=== PATIENT | male | born 1965 | race Caucasian/White ===

== ENCOUNTER 2024-06-29 09:04 | Emergency (ER) | payer BC, SELFPAY ==
[2024-06-29] VITALS (14 sets, daily range): BP systolic 158–190; BP diastolic 99–125; BMI 27.2
--- NOTE | 2024-06-29 09:19 | ED.GENMED ---
History of Present Illness
<Elizabet López PA-C - Last Filed: 06/29/24 15:10>
General
Chief Complaint: Numbness
Source: patient
Exam Limitations: none
Time Seen by Provider: 06/29/24 09:19
Nursing documentation reviewed up to this point in time: agreed with
History of Present Illness
History of Present Illness:
This is a 59 y/o male with a PMH of HTN, HLP presenting to the emergency department today with left arm paresthesias that started around 3 hours ago upon wakening. Patient reports that he feels these paresthesias from the tips of all his fingers up
to 1/3 up the distal forearm. Patient states that it feels like he slept on it wrong but normally the sensation will go away within minutes upon wakening and this time it has persisted. Patient reports that since it has started, it has not gotten
worse and has since started to improve a bit. Patient also notes associated fatigue. Patient denies dizziness, lightheadedness, chest pain, shortness of breath, difficulty speaking, weakness, difficulty ambulating. Patient does have a history of
hypertension hyperlipidemia and he is controlled on nebivolol, statin, and baby aspirin. Patient reports no specific cardiac history, however he had a recent abnormal coronary artery calcium score and is scheduled to have an echocardiogram.
Patient denies any wrist pain, any neck pain.
Review of Systems
<Elizabet López PA-C - Last Filed: 06/29/24 15:10>
Review of Systems
All Other Systems: ROS reviewed and negative except as documented in HPI and ROS
Phy Exam
<Elizabet López PA-C - Last Filed: 06/29/24 15:10>
Physical Exam
Physical Exam:
General: Patient is well appearing and in no acute distress; non-toxic
Skin: Warm and dry, no rashes or lesions
Head: Normocephalic, atraumatic
Eyes: Sclera non-icteric. EOMs intact. Visual field testing intact.
Neck: Patient seen continuously moving cervical spine, no tenderness palpation cervical spine
Cardiac: Regular rate and rhythm, no murmur
Peripheral Vascular: No lower extremity swelling or edema
Pulm: Normal respiratory effort, equal breath sounds bilaterally, no wheezes, rales, or rhonchi
Musculoskeletal: 5 out of 5 strength in bilateral upper and lower extremities, no palpable bony deformities. Negative Phalen's test, negative Tinel's, negative elbow flexion test.
Neuro: CN II-XII intact, no focal neurologic deficits. Sensation intact to light touch bilaterally. Normal rkaath-uv-[id number], [id number] testing.
Psychiatric: Appropriate mood and affect.
Scores
<Elizabet López PA-C - Last Filed: 06/29/24 15:10>
NIH Stroke Score
Level of Consciousness: 0 - Alert
LOC Questions: 0-Answers both correctly
LOC Commands: 0-Performs both correctly
Best Horizontal Gaze: 0-Normal
Visual Phillips: 0=Normal, no visual loss
Facial Palsy: 0=Normal, symmetrical
Motor - Right Arm: 0=No drift 10 seconds
Motor - Left Arm: 0=No drift 10 seconds
Motor - Right Le-No drift 5 seconds
Motor - Left Le-No drift 5 seconds
Limb Ataxia: 0-Absent
Sensation: 0-Normal
Best Language: 0-No aphasia
Dysarthria: 0-Normal
Extinction and Inattention: 0-No abnormality
Total Score:: 0
<Polly London DO - Last Filed: 06/29/24 12:42>
NIH Stroke Score
Total Score:: 0
Course
<Elizabet López PA-C - Last Filed: 06/29/24 15:10>
Orders/Labs/Results
Orders:
Orders
06/29/24 09:12
ECG [Electrocardiogram (*1)] Urgent
Reason for Study: Vertigo / Dizzy
EKG- Treatment ONCE
06/29/24 09:22
IV Insert/Care/Rem.- Treatment PRN
06/29/24 09:39
Complete Blood Count/With Diff Urgent
Comprehensive Metabolic Panel Urgent
Troponin I Urgent
06/29/24 10:13
CT Head W/o Iv Contrast Urgent
Comment:
Reason For Exam: left upper extremity paresthesias
Abnormal Lab Results
06/29/24
09:39
RBC 4.51 L 10^6/uL
(4.70-6.10)
MCV 96.0 H fL
(80.0-94.0)
MCH 33.9 H pg
(27.0-31.0)
Absolute Monos (auto) 0.7 H 10^3/uL
(0.1-0.6)
Monocytes % 12.5 H %
(1.7-9.3)
Carbon Dioxide 20 L mmol/L
(22-30)
AST 70 H U/L
(17-59)
ALT 77 H U/L
(0-50)
06/29/24 09:39
06/29/24 09:39
Vital Signs
Initial and Last Documented VS:
Initial Vital Signs
Temp Pulse Resp BP Pulse Ox
97.9 F 63 18 190/117 98
06/29/24 09:07 06/29/24 09:07 06/29/24 09:07 06/29/24 09:07 06/29/24 09:07
Last Documented Vital Signs
Temp Pulse Resp BP Pulse Ox
97.9 F 64 12 165/99 96
06/29/24 09:07 06/29/24 12:40 06/29/24 12:40 06/29/24 12:40 06/29/24 12:30
<Polly London, DO - Last Filed: 06/29/24 12:42>
Orders/Labs/Results
Orders:
Orders
06/29/24 09:12
ECG [Electrocardiogram (*1)] Urgent
Reason for Study: Vertigo / Dizzy
EKG- Treatment ONCE
06/29/24 09:22
IV Insert/Care/Rem.- Treatment PRN
06/29/24 09:39
Complete Blood Count/With Diff Urgent
Comprehensive Metabolic Panel Urgent
Troponin I Urgent
06/29/24 10:13
CT Head W/o Iv Contrast Urgent
Comment:
Reason For Exam: left upper extremity paresthesias
Abnormal Lab Results
06/29/24
09:39
RBC 4.51 L 10^6/uL
(4.70-6.10)
MCV 96.0 H fL
(80.0-94.0)
MCH 33.9 H pg
(27.0-31.0)
Absolute Monos (auto) 0.7 H 10^3/uL
(0.1-0.6)
Monocytes % 12.5 H %
(1.7-9.3)
Carbon Dioxide 20 L mmol/L
(22-30)
AST 70 H U/L
(17-59)
ALT 77 H U/L
(0-50)
06/29/24 09:39
06/29/24 09:39
Vital Signs
Initial and Last Documented VS:
Initial Vital Signs
Temp Pulse Resp BP Pulse Ox
97.9 F 63 18 190/117 98
06/29/24 09:07 06/29/24 09:07 06/29/24 09:07 06/29/24 09:07 06/29/24 09:07
Last Documented Vital Signs
Temp Pulse Resp BP Pulse Ox
97.9 F 64 12 165/99 96
06/29/24 09:07 06/29/24 12:40 06/29/24 12:40 06/29/24 12:40 06/29/24 12:30
<Elizabet López PA-C - Last Filed: 06/29/24 15:10>
MDM/Problems Addressed
Differential Diagnosis Includes:
Differentials include stroke, TIA, cervical radiculopathy, carpal tunnel syndrome, cubital tunnel syndrome, electrolyte derangement
MDM/Problems Addressed:
Left upper extremity paresthesias:
This is a 59 y/o male with a PMH of HTN, HLP presenting to the emergency department today with left arm paresthesias that started around 3 hours ago upon wakening. Patient reports that he feels these paresthesias from the tips of all his fingers up
to 1/3 up the distal forearm. Patient has associated fatigue but denies headache, dizziness, neck pain, wrist pain, difficulty speaking, difficulty ambulating. On physical exam, pt's bp is elevated at 190/117, does have a hx of htn takes navedilol.
His NIHSS is 0, no focal neurologic deficits, sensation intact. His CBC is unremarkable, CMP with no evidence of electrolyte derangements. Initial troponin undetectable, EKG normal sinus rhythm, no signs of ischemia. CT of the head negative for any
acute intracranial normalities. Patient's symptoms have resolved. Patient's blood pressure prior to discharge was 165/99. Discussed with patient keeping a blood pressure log and following up with primary care provider. No indication for acute
lowering at this time. Patient asymptomatic. Patient stable for discharge.
Chronic conditions affecting care:
hypertension, hyperlipidemia
Acute Exacerbation and/or Progression of Chronic Illness:
hypertension, hyperlipidemia
<Elizabet López PA-C - Last Filed: 06/29/24 15:10>
*Pulse Oximetry
Patient hypoxic: no
*EKG
EKG Intrepretation Date: 06/29/24
Interpretation: abnormal
Comparison EKG: no changes
Heart Rate: 62
Rate: normal
Rhythm: sinus
[place]: normal axis
Interval: normal interval
QRS Pattern: normal QRS
Ischemia: no ischemia
*Critical Care Note
Total Time (30-74mins, 75-104mins- exclusive of procedures): Not Applicable
Data Reviewed
Review of Other/Old Records Reveals: Records (No previous ER physician documentation to review) and Discharge Summary (No discharge summaries in [facility] to review)
Source: patient and records
<Elizabet López PA-C - Last Filed: 06/29/24 15:10>
Update Note
Update Note:
Patient reports that his symptoms have resolved.
ED Attending Note
<Elizabet López PA-C - Last Filed: 06/29/24 15:10>
-
Portions of this chart may have been created with voice recognition software.� Occasional wrong word or��sound alike� substitutions may have occurred due to the inherent limitations of voice recognition software.
<Polly London DO - Last Filed: 06/29/24 12:42>
ED Attending Note
Patient seen and examined by attending physician: Yes
I performed the substantive portion of visit, reviewed & personally made and approve the management plan that is documented in note by myself or JAMI.: Yes
I performed a history and physical exam of patient and discussed management with resident, I reviewed resident's note and agree with documented findings and plan of care.: Yes
ED Attending Note:
59-year-old male with past medical history of hypertension presenting to the emergency department for numbness to the left upper extremity. Patient reports that he woke up with the symptoms, reports that it was in the forearm region, down to the
fingers. He was unsure whether or not he slept on his arm in a weird position. However, he was concerned because symptoms lasted for several hours. On arrival to the hospital, reports the paresthesias were improving. Denies any associated
weakness. Denies any stroke history in the past. Denies any associated chest pain or difficulty breathing. Denies fever or known sick contacts. Denies any associated neck pain or recent injury. Vital signs and arrival significant for
hypertension. Patient reports compliance with his blood pressure medications, however does not routinely check his blood pressure.
On exam, patient is very well-appearing, no acute distress or discomfort. On my examination, no focal neurologic deficits, with intact strength and sensation to bilateral upper and lower extremities. NIH stroke scale of 0. Regardless of NIH
stroke scale, patient out of window for any tPA or intervention given that he woke up with the symptoms, unclear known onset. In addition, low suspicion for acute CVA. Suspected cervical radiculopathy given isolated nature and improving symptoms.
Given presenting hypertension and age, will screen with CT brain imaging. Patient had EKG, no acute arrhythmia, no acute ischemia or change from prior EKG in 2018. Patient also had screening laboratory analysis, unremarkable.
12:30 - negative. Patient's blood pressure remains slightly elevated. However, patient asymptomatic regarding his high blood pressure. Feel stable for discharge with close interval follow-up with his primary care doctor regarding blood pressure
management. Strict return precautions communicated and patient verbalized understanding.
Discharge Plan
Departure
Patient Disposition: Home (Routine Discharge)
Date of Disposition: 06/29/24
Time of Disposition: 12:27
Patient with high blood pressure during this ER visit?: Yes
Condition: Good
Discharge Problem:
Paresthesia of left arm
Instructions: Paresthesia (DC), Hand Numbness, BLOOD PRESSURE
Referrals:
Saeed Moore DO [Family Provider] -
Activity Restrictions/Additional Instructions:
Please schedule a follow up appointment with your primary care provider to address your elevated blood pressure. Please keep a log of your blood pressure. Please take it once daily in the morning in a relaxed and seated position.
Please return to the emergency department should you experience difficulty walking, difficulty speaking, blurred vision, double vision, confusion, balance issues, slurred speech, chest pain, shortness of breath, or any other signs or symptoms
concerning to you.
Interventions
Interventions:
*Risk Screen - Suicide Last Done: 06/29/24 09:07
*General Assessment Last Done: 06/29/24 09:07
*Neglect/Abuse Screening Last Done: 06/29/24 09:07
ED- Fall Risk Assessment Last Done: 06/29/24 09:42
*ED COVID-19 Vaccine History Last Done: 06/29/24 10:21
*Nursing Disposition Last Done: 06/29/24 13:00
ED- Neurological Assessment Last Done: 06/29/24 09:47
Discharge Date and Time
Discharge Date/Time: 06/29/24 13:03
Print Language: MEXICAN
--- NOTE | 2024-06-29 09:35 | EDRN ---
Luis UNGER in room w/ pt.
[2024-06-29 09:48] LABS: % Basophils 1.1 % (0-2); % Eosinophils 4.2 % (0-6); % Immature Granulocytes 0.4 % (0-0.5); % Lymphocytes 32.3 % (20.5-51.1); % Monocytes 12.5 % (1.7-9.3); % Neutrophils 49.5 % (42.2-75.2); Absolute Basophils 0.1 10^3/uL (0-0.2); Absolute Eosinophils 0.2 10^3/uL (0-0.7); Absolute Lymphocytes 1.8 10^3/uL (1.2-3.4); Absolute Monocytes 0.7 10^3/uL (0.1-0.6); Absolute Neutrophils 2.8 10^3/uL (1.4-6.5); Hematocrit 43.3 % (39.0-52.0); Hemoglobin 15.3 g/dL (13.0-18.0); Mean Corp Hgb Conc. 35.3 g/dL (33.0-37.0); Mean Corpuscular Hgb 33.9 pg (27.0-31.0); Mean Platelet Volume 9.5 fL (7.4-10.4); Nucleated Red Blood Cells % 0 % (-); Platelet Count 161 10^3/uL (130-400); Red Blood Cell Count 4.51 10^6/uL (4.70-6.10); White Blood Cell Count 5.5 10^3/uL (4.8-10.8)
[2024-06-29 10:00] LABS: ALT (SGPT) 77 U/L (0-50); AST (SGOT) 70 U/L (17-59); Albumin 4.8 g/dl (3.5-5.0); Alkaline Phosphatase 69 U/L (38-126); Blood Urea Nitrogen 9 mg/dl (9-20); Calcium 9.2 mg/dl (8.4-10.2); Carbon Dioxide 20 mmol/L (22-30); Chloride 106 mmol/L (98-107); Estimated Creatinine Clearance 123 ml/min; Glucose 96 mg/dl (70-99); Potassium 4.7 mmol/L (3.5-5.1); Sodium 136 mmol/L (135-145); Total Bilirubin 0.4 mg/dl (0.2-1.3); Total Protein 7.6 g/dl (6.3-8.2); eGFR > 60.00
--- NOTE | 2024-06-29 10:12 | EDRN ---
Pt OOB to BR at this time.
[2024-06-29 10:19] LABS: Troponin I < 0.012 ng/ml
--- NOTE | 2024-06-29 11:21 | EDRN ---
Dr. London in room w/pt at this time.
== END 2024-06-29 13:03 | disposition home or self-care (01) ==
LOC: EMR 09:04
PROVIDERS: Physician Assistant; EMERGENCY PHYSICIAN Student in an Organized Health Care Education/Training Program; FAMILY PHYSICIAN Family Medicine
DX: R20.2 Paresthesia of skin (principal); R53.83 Other fatigue; R20.0 Anesthesia of skin; I10 Essential (primary) hypertension; E78.5 Hyperlipidemia, unspecified; Z79.899 Other long term (current) drug therapy; Z79.82 Long term (current) use of aspirin
CPT/HCPCS: 99285; 70450; 80053; 84484; 85025; 93005

== ENCOUNTER → 2024-07-17 07:17 | Outpatient (REF) | payer BC, SELFPAY | LOC: RCS 07:17 | PROVIDERS: ATTENDING PHYSICIAN Family Medicine | DX: I10 Essential (primary) hypertension (principal) | CPT/HCPCS: 93306 ==

== ENCOUNTER → 2025-09-08 16:43 | Outpatient (REF) | payer BC, SELFPAY ==
[2025-09-08 17:44] LABS: Potassium 4.7 mmol/L (3.5-5.1)
== END ==
LOC: CLAB 16:43
PROVIDERS: ATTENDING PHYSICIAN Family Medicine
DX: E87.5 Hyperkalemia (principal)
CPT/HCPCS: 36415; 84132